=== PATIENT | male | born 1940 | race Caucasian/White ===

== ENCOUNTER 2016-08-04 08:30 | Inpatient (IN) | payer OTHER, MEDICARE ==
[~2016-08-04] VITALS: Ht 182.9 cm; Wt 132.8 kg
[2016-09-21] MEDS ORDERED: OMEGCAP19 PO (15:26)
[2016-09-21] MEDS ORDERED: CO Q100C9 PO (15:26)
[2016-09-21] MEDS ORDERED: DILT180C56 PO (15:26)
[2016-09-21] MEDS ORDERED: ASPI1TAB69 PO (15:26)
[2016-09-21] MEDS ORDERED: ATOR10TA15 PO (15:26)
[2016-09-22] MEDS: SODIUM CHLORIDE 0.9% IV SCH ×2 (09:15→11:25)
[2016-09-22] MEDS: SODIUM CHLORID 0.9% 500 ML IV SCH (09:15)
[2016-09-22] MEDS: LACTATED RINGER'S 1000 ML IV SCH (09:15)
[2016-09-22] MEDS: TRANEXAMIC ACID IV SCH ×2 (09:15→11:25)
[2016-09-22] MEDS ORDERED: INSULIN HUMAN REGULAR 1,000 UNITS/10 ML VIAL SQ PRN (09:15)
[2016-09-22] MEDS ORDERED: ceFAZolin 2 GM PREMIX 50 ML IV SCH (09:15)
[2016-09-22] MEDS: POVIDONE IODINE 7.5% SCRUB 118 ML BOTTLE TOP SCH (09:15)
[2016-09-22] MEDS: ROPIVACAINE PERI-ARTICULAR INJECTION. PERIART SCH ×10 (09:15→11:46)
[2016-09-22] MEDS ORDERED: METOPROLOL TARTRATE 25 MG TAB PO PRN (09:15)
[2016-09-22] MEDS ORDERED: DEXAMETHASONE SOD PHOS 20 MG/5 ML VIAL IV SCH (09:15)
[2016-09-22] MEDS ORDERED: VANCOMYCIN 1000 MG/NS 250 ML (for <70 kg) IV SCH ×2 (09:15)
[2016-09-22 09:20] VITALS: BP 174/87; PULSE 62; RESP 18; TEMP 98; O2SAT 98
[2016-09-22] MEDS ORDERED: MIDAZOLAM HCL 5 MG/5 ML VIAL ONE (10:01)
[2016-09-22] MEDS ORDERED: FAMOTIDINE 20 MG/2 ML VIAL ONE (10:01)
[2016-09-22] MEDS ORDERED: GENTAMICIN SULFATE 80 MG/2 ML VIAL ONE (10:23)
[2016-09-22] MEDS ORDERED: BUPIVACAINE LIPOSOME PF 1.3% 20 ML VIAL ONE (11:29)
[2016-09-22] MEDS ORDERED: DO NOT ADM ANY ANTICOAGULANT DRUGS XX PRN (12:20)
[2016-09-22] MEDS: SODIUM CHLOR 0.9% 1000 ML INJ 1,000 ML IV SCH (12:50)
--- NOTE | 2016-09-22 12:53 | PD.OP ---
cc: Isidro Shane MD Operative Report Date of Surgery: Sep 22, 2016 Preoperative Diagnosis: Right knee severe osteoarthritis Postoperative Diagnosis: Same Procedure: Right total knee arthroplasty Anesthesia: Adductor canal block and general Surgeon: Isidro Shane Wafer Substrate Tester(s): JOEY Jose The surgical procedure was assisted by my Advanced Registered Nurse Practitioner. My TECHNOLOGY SUPPORT ANALYST presence was necessary throughout this case for the manipulation and positioning of the surgical extremity. My TECHNOLOGY SUPPORT ANALYST was assisting me throughout the duration of this procedure. The skill set of an Advance Registered Nurse Practitioner was medically necessary to complete this procedure. During the surgical case, the technical laboratory asst was working at the back table and the Advance Registered Nurse Practitioner was directly assisting me. Operation and Findings: IMPLANTS: DePuy Attune: Patella: size 38. Femur, posterior stabilized size 8. Tibia, rotating platform size 8. Tibial insert, rotating platform, posterior stabilized size 6 mm thickness. ESTIMATED BLOOD LOSS: 150 cc TOURNIQUET TIME: 46 minutes at 250 mmHg pressure. JUSTIFICATION FOR PROCEDURE: The patient has end-stage osteoarthritis to the knee. There is an attached conservative measures pathway form in the chart that describes the nonoperative measures that were undertaken prior to consideration of surgical management. The patient understood the risks and benefits of surgical management. See my office notes for further details PROCEDURE: The patient was brought back to the operative theatre. Adequate anesthesia was obtained. The patient received intravenous vancomycin and Ancef. The lower extremity was prepped and draped in the usual sterile fashion.The leg was exsanguinated, the tourniquet was raised. A standard anterior incision was performed followed by medial parapatellar arthrotomy was performed. End-stage arthritis was identified. Osteotomy of the patella was performed. We drilled holes for the patella. We trialed the patella component. We placed an intramedullary guide into the distal femur. We ultimately resected 14 mm off of the distal femur in 5 degrees of valgus. The remnants of the ACL and PCL were resected. Osteotomy of the proximal tibia was performed, resecting 9 mm off of the medial side. This was done with 3 degrees of posterior slope using an extramedullary guide. The distal end of the guide was placed in the mid aspect of the ankle. The femur was sized, and four chamfer cuts were completed in 3 of external rotation. We then cut the central box in the distal femur to replace the PCL. We resected the remnants of the menisci and removed osteophytes off of the femur and tibia. We then trialed the knee. We punched the tibia for the keel, and then used standard technique to cement in components. Excess cement was removed. We trialed the knee again and the final polyethylene thickness was chosen to provide extension to 0 degrees, and flexion of 140 degrees to gravity. The ligaments were appropriately balanced. Lateral release was necessary to obtain excellent patellofemoral tracking. The tourniquet was released and adequate hemostasis was obtained. An intra- articular injection of a ropivacaine cocktail was injected. The posterior knee was inspected for excess cement, which was removed. The final polyethylene was put into position after thorough irrigation. We then closed deep fascia with a #2 Stratafix followed by skin with 2-0 Vicryl followed by can. Postop plan is to weight-bear as tolerated. DVT prophylaxis will be performed with Janet, CECY high, early mobilization, and Lovenox followed by aspirin. Isidro Shane MD Sep 22, 2016 12:53
[2016-09-22] MEDS ORDERED: ASPI325T PO (12:54)
[2016-09-22] MEDS ORDERED: NORC5TAB PO (12:54)
[2016-09-22] MEDS ORDERED: ENOX40P SQ (12:54)
[2016-09-22] MEDS ORDERED: MAGNESIUM HYDROXIDE SUSP 30 ML CUP PO PRN (13:00)
[2016-09-22] MEDS ORDERED: ZOLPIDEM TARTRATE 5 MG TAB PO PRN (13:00)
[2016-09-22] MEDS ORDERED: BISACODYL 10 MG SUPP PR PRN (13:00)
[2016-09-22] MEDS ORDERED: diphenhydrAMINE HCL 50 MG/ML VIAL IV PRN (13:00)
[2016-09-22] MEDS ORDERED: NALOXONE HCL 0.4 MG/ML AMP IV PRN (13:00)
[2016-09-22] MEDS ORDERED: SODIUM CHLORIDE 0.9% FLUSH 5 ML FLUSH IVF PRN (13:00)
[2016-09-22] MEDS ORDERED: MORPHINE SULFATE 4 MG/ML INJ IV PUSH PRN (13:00)
[2016-09-22] MEDS ORDERED: ONDANSETRON HCL 4 MG/2 ML VIAL IVP PRN (13:00)
[2016-09-22] MEDS ORDERED: ACETAMINOPHEN/HYDROcodone 325 MG/5 MG TAB PO PRN ×2 (13:00)
[2016-09-22] MEDS ORDERED: Post-op Orders (for Pharmacy) MISC XX ONE (13:00)
[2016-09-22] MEDS ORDERED: ALUMINUM/MAGNESIUM/SIMETH 30 ML CUP PO PRN (13:00)
[2016-09-22] MEDS ORDERED: fentaNYL CITRATE 250 MCG/5 ML AMP ONE (13:28)
--- NOTE | 2016-09-22 13:36 | PD.CONS ---
HPI [facility] Consult Requested By Orthopedic surgery Reason for Consult Medical management Primary Care Physician Non-Staff Diagnoses: History of Present Illness 76-year-old male with a history of hypertension and hyperlipidemia, right knee severe osteoarthritis underwent Right total knee arthroplasty today 09/22/16. Medical management was tried and failed and patient continued to have severe knee pain affecting his daily living of activity. Patient was seen in PACU . His vitals remained stable Review of Systems Other 12 systems reviewed and are negative except for the one mentioned in the history of present illness Past Family Social History Allergies: Coded Allergies: No Known Allergies (Unverified , 09/22/16) Past Medical History Right knee osteoarthritis Hypertension Hyperlipidemia Past Surgical History Right total knee arthroplasty Reported Medications See EMR Family History Noncontributory Social History No report of alcohol, tobacco or illicit drug intake Physical Exam Vital Signs Vital Signs Date Time Temp Pulse Resp B/P Pulse Ox O2 Delivery O2 Flow Rate FiO2 09/22/16 09:20 98.0 62 18 174/87 98 Physical Exam GENERAL: This is a well-nourished, well-developed patient, in no apparent distress. SKIN: No rashes, ecchymoses or lesions. Cool and dry. HEAD: Atraumatic. Normocephalic. No temporal or scalp tenderness. EYES: Pupils equal round and reactive. Extraocular motions intact. No scleral icterus. No injection or drainage. ENT: Nose without bleeding, purulent drainage or septal hematoma. Throat without erythema, tonsillar hypertrophy or exudate. Uvula midline. Airway patent. NECK: Trachea midline. No JVD or lymphadenopathy. Supple, nontender, no meningeal signs. CARDIOVASCULAR: Regular rate and rhythm without murmurs, gallops, or rubs. RESPIRATORY: Clear to auscultation. Breath sounds equal bilaterally. No wheezes , rales, or rhonchi. GASTROINTESTINAL: Abdomen soft, non-tender, nondistended. No hepato-splenomegaly , or palpable masses. No guarding. MUSCULOSKELETAL: Extremities without clubbing, cyanosis, or edema. Right knee repair; dressing in place-neurovascular intact NEUROLOGICAL: Awake and alert. Cranial nerves II through XII intact. Motor and sensory grossly within normal limits. Five out of 5 muscle strength in all muscle groups. Normal speech. Laboratory Laboratory Tests Test 09/22/16 09:10 Blood Type O NEGATIVE Antibody Screen NEGATIVE Blood Bank Comment Assessment and Plan Assessment and Plan 76-year-old male with Severe right knee osteoarthritis: Status post Right total knee arthroplasty and management per orthopedic surgery. Continue current postop care including IV antibiotics, pain management. DVT prophylaxis per orthopedic surgery. PT consult to treat and eval. Hypertension: Resume Cardizem 240 mg daily Hyperlipidemia: Resume Lipitor History of CAROLINE: BiPAP when necessary at night DVT prophylaxis: Lovenox Thank you for this consultation Code Status Full code Edinson Ospina MD Sep 22, 2016 13:36
[2016-09-22] MEDS ORDERED: ENALAPRILAT 1.25 MG/ML VIAL IV PUSH PRN (13:45)
[2016-09-22] MEDS ORDERED: RESP: ALBUTEROL 2.5 MG/IPRATROPIUM 0.5 MG NEB (PRN) NEB (13:45)
[2016-09-22] MEDS ORDERED: LACTATED RINGER'S 1000 ML INJ 1,000 ML IV ONE (13:51)
[2016-09-22] MEDS ORDERED: ONDANSETRON HCL 4 MG/2 ML VIAL IV PUSH ONE (13:51)
[2016-09-22] MEDS ORDERED: NEOSTIGMINE 3 MG/3 ML SYR IV ONE (13:51)
[2016-09-22] MEDS ORDERED: PROPOFOL 200 MG/20 ML AMP IV ONE (13:51)
[2016-09-22] MEDS ORDERED: SODIUM CHLORIDE 0.9% IV SCH (14:30)
[2016-09-22] MEDS ORDERED: TRANEXAMIC ACID IV SCH (14:30)
--- NOTE | 2016-09-22 14:33 | RADRPT ---
EXAM DATE/TIME: 09/22/2016 13:26 [facility] COMPARISON: No previous studies available for comparison. INDICATIONS : Post op right knee replacement. MEDICAL HISTORY : None. SURGICAL HISTORY : None. ENCOUNTER: Initial ACUITY: 1 day PAIN SCORE: 0/10 LOCATION: Right knee FINDINGS: Total knee prosthesis in place well-seated with superficial surgical can and air in the suprapate llar bursa CONCLUSION: Total knee prosthesis well seated. David Fernandez MD on September 22, 2016 at 14:31 Board Certified Radiologist. This report was verified electronically.
--- NOTE | 2016-09-22 15:04 | HHI.DCPOC ---
Discharge Care Plan Diagnosis: (1) Status post total knee replacement, right (2) Primary localized osteoarthrosis, lower leg Your Health Problems Are: Difficulty with ADL Goals to Promote Your Health * To prevent worsening of your condition and complications * To maintain your health at the optimal level Directions to Meet Your Goals Take your medications as prescribed Follow your dietary instruction Follow activity as directed Keep your appointments as scheduled Take your immunizations and boosters as scheduled If your symptoms worsen call your PCP, if no PCP go to Urgent Care Center or Emergency Room Smoking is Dangerous to Your Health. Avoid second hand smoke Call the 24-hour hour crisis hotline for domestic abuse at Martinez Vargas Sep 22, 2016 15:04
--- NOTE | 2016-09-22 15:05 | HHI.FF ---
Face to Face Verification Diagnosis: (1) Primary localized osteoarthrosis, lower leg (2) Status post total knee replacement, right Physical Therapy Gait training, Transfer training, bed to chair Knee: Total knee Right LE Weight Bearing: WB as tolerated Right LE Range of Motion: Active ROM Nursing Nursing: Amee teaching, Dressing changes Dressing Changes: Daily dressing change I have seen patient Trevor Alfaro on 09/22/16. My clinical findings support the need for the requested home health care services because: Limited ability to care for self High risk of falls I certify that my clinical findings support that this patient is homebound because: Post-op weakness Unsteady gait/balance Martinez Vargas Sep 22, 2016 15:05
[2016-09-22] MEDS ORDERED: CPMMACHINE (15:07)
[2016-09-22] MEDS ORDERED: WALKER WHEELS/F1 MIS (15:07)
[2016-09-22] MEDS ORDERED: COMMODE 3-IN-11 MIS (15:07)
[2016-09-22 15:38] VITALS: BP 148/68; PULSE 67; RESP 19; TEMP 96.7; O2SAT 94
[2016-09-22 19:00] VITALS: BP 169/84; PULSE 73; RESP 16; TEMP 97
[2016-09-22] MEDS: SODIUM CHLORIDE 0.9% FLUSH 5 ML FLUSH IVF SCH (20:26)
[2016-09-22] MEDS ORDERED: ATORVASTATIN 10 MG TAB PO SCH (21:00)
[2016-09-23 00:15] VITALS: BP 176/92; PULSE 78; RESP 18; TEMP 96.5; O2SAT 95
[2016-09-23] MEDS: SODIUM CHLOR 0.9% 1000 ML INJ 1,000 ML IV SCH ×2 (01:50→08:33)
[2016-09-23] MEDS: SODIUM CHLORID 0.9% 500 ML IV SCH (01:55)
[2016-09-23 04:25] VITALS: BP 159/82; PULSE 81; RESP 18; TEMP 98.1; O2SAT 96
[2016-09-23 07:01] LABS: HEMATOCRIT 38.8 % (39.0-51.0); MEAN CELL VOLUME 95.1 FL (80.0-100.0); MEAN CORPUSCULAR HGB CONC 34.7 % (32.0-36.0); PLATELET COUNT 163 TH/MM3 (150-450); RED BLOOD COUNT 4.08 MIL/MM3 (4.50-5.90); RED CELL DISTRIBUTION WIDTH 13.5 % (11.6-17.2); REVIEW FLAG FINAL
[2016-09-23 07:35] LABS: BICARBONATE 23.4 MEQ/L (21.0-32.0)
[2016-09-23] MEDS ORDERED: DEXAMETHASONE SOD PHOS 20 MG/5 ML VIAL IV ONE (07:45)
[2016-09-23 07:53] LABS: POTASSIUM 4.8 MEQ/L (3.5-5.1)
[2016-09-23 08:00] VITALS: BP 160/83; PULSE 86; RESP 18; TEMP 95.6; O2SAT 93
[2016-09-23] MEDS: POVIDONE IODINE 7.5% SCRUB 118 ML BOTTLE TOP SCH (08:33)
[2016-09-23] MEDS: LACTATED RINGER'S 1000 ML IV SCH (08:33)
[2016-09-23] MEDS: SODIUM CHLORIDE 0.9% FLUSH 5 ML FLUSH IVF SCH (08:33)
[2016-09-23] MEDS ORDERED: DILTIAZEM-CD 180 MG CAP ER PO SCH (09:00)
[2016-09-23] MEDS ORDERED: MAGNESIUM HYDROXIDE SUSP 30 ML CUP PO SCH (10:00)
[2016-09-23 12:00] VITALS: BP 176/88; PULSE 78; RESP 18; TEMP 96.5; O2SAT 95
[2016-09-23] MEDS ORDERED: ENOXAPARIN SODIUM 40 MG/0.4 ML SYRINGE SQ SCH (12:15)
--- NOTE | 2016-09-23 12:28 | PD.ORT.PN ---
Subjective Post Op Day #: 1 Subjective Remarks The patient is OOB in chair with no pain to the right knee. Patient is voiding and ambulatory. Patient states he is ready to go home today. Objective Vitals Vital Signs Date Time Temp Pulse Resp B/P Pulse Ox O2 Delivery O2 Flow Rate FiO2 09/23/16 08:00 95.6 86 18 160/83 93 09/23/16 04:25 98.1 81 18 159/82 96 09/23/16 00:15 96.5 78 18 176/92 95 09/22/16 19:00 97.0 73 16 169/84 09/22/16 15:38 96.7 67 19 148/68 94 09/22/16 14:15 97.6 68 14 142/73 93 Nasal Cannula 3 09/22/16 14:00 68 14 151/68 92 Nasal Cannula 3 09/22/16 13:45 68 14 148/73 92 Nasal Cannula 4 09/22/16 13:30 82 14 154/87 91 Nasal Cannula 4 09/22/16 13:20 97.6 74 14 159/84 91 Nasal Cannula 4 I/O 09/22/16 09/22/16 09/22/16 09/23/16 09/23/16 09/23/16 07:00 15:00 23:00 07:00 15:00 23:00 Intake Total 1100 ml 1267 ml 997 ml 300 ml Output Total 800 ml 250 ml 750 ml 125 ml Balance 300 ml 1017 ml 247 ml 175 ml Intake Oral 480 ml 240 ml IV Total 787 ml 757 ml 300 ml Other 1100 ml Output Urine Total 750 ml 250 ml 750 ml 125 ml Estimated Blood Loss 50 ml # Voids 0 0 # Bowel Movements 0 0 Result Diagram: 09/23/16 0611 09/23/16 0611 Imaging Last 24 hours Impressions Knee X-Ray 09/22/16 1250 Signed Impressions: Service Date/Time: Thursday, September 22, 2016 13:26 - CONCLUSION: Total knee prosthesis well seated. David Fernandez MD Procedures Right TKA Objective Remarks The patient's dressing was changed with scant serosanguineous drainage. Incision is well approximated with surgical clips intact. No redness or s/s of infection. No calf tenderness or swelling. + SILT. EHL/TA/G intact. 2+ pedal pulse. Assessment & Plan Ortho Post Op Day #: 1 Problem List: Assessment and Plan POD #1: Right TKA 1. WBAT RLE 2. Lovenox for DVT prophylaxis 3. Ice to the right knee PRN 4. The patient is stable for discharge home with home health today. Martinez Vargas Sep 23, 2016 12:28
--- NOTE | 2016-09-23 12:59 | HHI.PR ---
Subjective Remarks Patient seen and examined Initially has urinary retention hour now resolved No acute event overnight Currently afebrile and reports improvement of right knee pain Objective Vitals Vital Signs Date Time Temp Pulse Resp B/P Pulse Ox O2 Delivery O2 Flow Rate FiO2 09/23/16 08:00 95.6 86 18 160/83 93 09/23/16 04:25 98.1 81 18 159/82 96 09/23/16 00:15 96.5 78 18 176/92 95 09/22/16 19:00 97.0 73 16 169/84 09/22/16 15:38 96.7 67 19 148/68 94 09/22/16 14:15 97.6 68 14 142/73 93 Nasal Cannula 3 09/22/16 14:00 68 14 151/68 92 Nasal Cannula 3 09/22/16 13:45 68 14 148/73 92 Nasal Cannula 4 09/22/16 13:30 82 14 154/87 91 Nasal Cannula 4 09/22/16 13:20 97.6 74 14 159/84 91 Nasal Cannula 4 I/O 09/22/16 09/22/16 09/22/16 09/23/16 09/23/16 09/23/16 07:00 15:00 23:00 07:00 15:00 23:00 Intake Total 1100 ml 1267 ml 997 ml 300 ml Output Total 800 ml 250 ml 750 ml 125 ml Balance 300 ml 1017 ml 247 ml 175 ml Intake Oral 480 ml 240 ml IV Total 787 ml 757 ml 300 ml Other 1100 ml Output Urine Total 750 ml 250 ml 750 ml 125 ml Estimated Blood Loss 50 ml # Voids 0 0 # Bowel Movements 0 0 Result Diagram: 09/23/16 0611 09/23/16 0611 Imaging Last Impressions Knee X-Ray 09/22/16 1250 Signed Impressions: Service Date/Time: Thursday, September 22, 2016 13:26 - CONCLUSION: Total knee prosthesis well seated. David Fernandez MD Objective Remarks GENERAL: NAD and sitting in a chair SKIN: Warm and dry. HEAD: Normocephalic. EYES: No scleral icterus. No injection or drainage. NECK: Supple, trachea midline. No JVD or lymphadenopathy. CARDIOVASCULAR: Regular rate and rhythm without murmurs, gallops, or rubs. RESPIRATORY: Breath sounds equal bilaterally. No accessory muscle use. GASTROINTESTINAL: Abdomen soft, non-tender, nondistended. MUSCULOSKELETAL: No cyanosis, or edema. Right knee repair, dressing in place- neurovascular intact BACK: Nontender without obvious deformity. No CVA tenderness. A/P Assessment and Plan 76-year-old male with Severe right knee osteoarthritis: Status post Right total knee arthroplasty and management per orthopedic surgery. Continue current postop care with pain management. DVT prophylaxis per orthopedic surgery. PT to treat and eval. Hypertension: Continue Cardizem 240 mg daily Hyperlipidemia: on Lipitor History of CAROLINE: BiPAP when necessary at night DVT prophylaxis: Lovenox Discharge Planning Discharge per orthopedic surgery Edinson Ospina MD Sep 23, 2016 12:59
[2016-09-23 13:03] VITALS: O2SAT 97
[2016-09-23] MEDS ORDERED: MULTIVITAMINS/MINERALS THERAPEUTIC TAB PO SCH (21:00)
[2016-09-23] MEDS ORDERED: SENNOSIDES 8.6 MG TAB PO SCH (21:00)
[2016-09-23] MEDS ORDERED: DOCUSATE SODIUM 100 MG CAP PO SCH (21:00)
--- NOTE | 2016-09-26 21:13 | HHI.DS ---
Discharge Summary Admission Date Sep 22, 2016 at 08:40 Discharge Date: Sep 23, 2016 Admitting Diagnosis Primary localized OA, lower leg Status post total knee arthroplasty, right Diagnosis: (1) Primary localized osteoarthrosis, lower leg Diagnosis: Principal (2) Status post total knee replacement, right Diagnosis: Principal Procedures Right TKA Brief History This is a 76 year old male patient with severe OA of the right knee. CBC/BMP: 09/23/16 0611 09/23/16 0611 PE at Discharge The patient's dressing was changed with scant serosanguineous drainage. Incision is well approximated with surgical clips intact. No redness or s/s of infection. No calf tenderness or swelling. + SILT. EHL/TA/G intact. 2+ pedal pulse. Hospital Course The patient was admitted to the hospital for severe OA of the right knee to have a right total knee arthroplasty. The patient's surgery went well without complication. The patient had good pain management with oral medication. The patient was WBAT. The patient tolerated a normal diet. The patient was discharged home with home health and will f/u with Dr. Shane in 1-2 weeks. Pt Condition on Discharge: Stable Discharge Disposition: Disch w/ Home Health Serv Discharge Instructions Diet Instructions: As Tolerated, No Restrictions, Diabetic Diet Activities You Can Perform: Weight Bearing as Yvonne Activities to Avoid: Strenuous Activity Follow up Referrals: Orthopedics with Isidro Shane MD [facility]/ with Nurse Industrial Hygiene Technician [phone] New Medications: Aspirin (Aspirin) 325 Mg Tab 325 MG PO DAILY Start Aspirin after Lovenox is completed. Prevent Blood Clot # 30 Ref 0 TAB Commode 3-in-1 (Commode 3-in-1) 1 Mis Mis 1 EA .ROUTE DIRECTED #1 Ref 0 EA CPM-Continuous Passive Motion Machine (CPM-Continuous Passive Motion Machine) 1 Ea Device 1 EA .ROUTE DIRECTED #1 Ref 0 EA Enoxaparin Inj (Lovenox Inj) 40 Mg/0.4 Ml Syr 40 MG SQ DAILY Start Aspirin after Lovenox is completed. Blood Clot Prevention # 10 Ref 0 SYRINGE Hydrocodone-Acetaminophen ([place]) 5-325 mg Tab 1-2 TAB PO Q4H PRN PAIN #60 Ref 0 TAB Walker with Front Wheels (Walker with Front Wheels) 1 Mis Mis 1 EA .ROUTE DIRECTED #1 Ref 0 EA Continued Medications: Atorvastatin (Atorvastatin) 10 Mg Tab 10 MG PO HS Cholesterol Management #30 Ref 0 TAB Diltiazem CD 24 HR (Diltiazem CD 24 HR) 180 Mg Caper 180 MG PO DAILY #30 Ref 0 CAP Discontinued Medications: Aspirin (Aspirin) 81 Mg Tabdr 81 MG PO DAILY TAB Coenzyme Q10 (Ubidecarenone) (Co Q 10) 100 Mg Cap 200 MG PO DAILY [place] 3 Fatty Acids-[place] 6 FA ([place] 3-6-9 Complex) 1 Cap Cap 1 CAP PO DAILY Martinez Vargas Sep 26, 2016 21:13
== END 2016-09-23 14:06 | disposition home health service (06) | DRG 470 ==
LOC: HSDI 09-22 08:40 → N06A 09-22 14:35
PROVIDERS: ADMIT Orthopaedic Surgery; ATTEND Orthopaedic Surgery
PROC: 3E0T3CZ (ICD-10-PCS; 2016-09-22)
PROC: 0SRC0J9 Replacement of Right Knee Joint with Synthetic Substitute, Cemented, Open Approach (ICD-10-PCS; principal; 2016-09-22 10:52)
DX: M17.11 Unilateral primary osteoarthritis, right knee (principal); I10 Essential (primary) hypertension; G47.33 Obstructive sleep apnea (adult) (pediatric); E78.5 Hyperlipidemia, unspecified; R33.9 Retention of urine, unspecified
CPT/HCPCS: 73560; 80048; 85027; 86850; 86900; 86901; 94150; C1776; C9290; J0171; J0690; J0735; J1100; J1580; J1650; J1885; J2250; J2405; J2710; J2795; J3010; J3370; J7030; J7050; J7120; L1830